=== PATIENT | female | born 1955 | race Caucasian/White ===

== ENCOUNTER 2021-05-07 10:32 | Emergency (ER) | payer OTHER, MEDICAID, SELFPAY ==
[~2021-05-07] VITALS: Ht 160 cm; Wt 77.1 kg
[2021-05-07 10:32] VITALS: BP_SYST 143
--- NOTE | 2021-05-07 10:32 | NUR ---
BROUGHT IN BY [facility] AND [facility]ACED IN BED #2, TRIAGED, REPORT GIVEN TO GABRIELA
--- NOTE | 2021-05-07 10:35 | NUR ---
ER at bedside examining patient.
--- NOTE | 2021-05-07 10:40 | NUR ---
pt. joanie NUNEZ for medical clearance to go to [facility]
[2021-05-07 11:11] LABS: BASOPHILS # (AUTO) 0.1 K/uL (0.0-0.2); BASOPHILS % (AUTO) 0.6 % (0.0-2.0); EOSINOPHILS # (AUTO) 0.6 K/uL (0.0-0.4); HEMATOCRIT 35.1 % (36-48); HEMOGLOBIN 11.6 g/dL (12.0-16.0); LYMPHOCYTES # (AUTO) 1.4 K/uL (1.0-5.5); LYMPHOCYTES % (AUTO) 17.2 % (20.5-51.5); MEAN CORPUSCULAR HEMOGLOBIN 28 pg (27-31); MEAN CORPUSCULAR HGB CONC 33 % (32-36); MEAN CORPUSCULAR VOLUME 85 fL (79.0-98.0); MONOCYTES # (AUTO) 0.8 K/uL (0.0-1.0); MONOCYTES % (AUTO) 10.3 % (1.7-9.3); NEUTROPHILS # (AUTO) 5.1 K/uL (1.8-7.7); NEUTROPHILS % (AUTO) 63.9 % (40.0-70.0); PLATELET COUNT (AUTO) 256 K/uL (130-430); RED BLOOD CELL COUNT(AUTO) 4.12 MIL/uL (4.2-6.2); RED CELL DISTRIBUTION WIDTH 15.3 % (9.0-15.0); WHITE BLOOD COUNT (AUTO) 8.1 K/uL (4.8-10.8)
--- NOTE | 2021-05-07 11:20 | NUR ---
66 years old female sent to er for medical clearance, denies pain vital stable.
[2021-05-07 11:48] LABS: ANION GAP 8 (5-15); CHLORIDE 104 mmol/L (98-107); CREATININE 0.59 mg/dL (0.55-1.30); GLUCOSE 104 mg/dL (70-99); POTASSIUM 4.3 mmol/L (3.5-5.1); SODIUM SERUM 137 mmol/L (136-145); UREA NITROGEN, BLOOD 14 mg/dL (8-21)
[2021-05-07 11:55] LABS: GFR AFRICAN AMERICAN 132 mL/min (>90)
[2021-05-07 12:03] LABS: ALANINE AMINOTRANSFERASE 32 U/L (12-78); ALBUMIN 3.4 g/dL (3.4-4.8); ASPARTATE AMINOTRANSFERASE 40 U/L (10-37); TOTAL BILIRUBIN 0.8 mg/dL (0.0-1.0)
[2021-05-07 12:04] LABS: ACETAMINOPHEN < 1 ug/mL (1-30); ALCOHOL, BLOOD < 3 mg/dL (<10)
[2021-05-07 12:17] LABS: CHOLESTEROL 153 mg/dL (<200); HDL CHOLESTEROL 60 mg/dL (>55); LDL CHOLESTEROL 78 mg/dL (<100); TRIGLYCERIDES 94 mg/dL (30-150)
--- NOTE | 2021-05-07 13:31 | NUR ---
MICHAEL IRWIN CALLED BACK TO NOTIFY THEIR CREW WILL BE HERE IN AN HOUR. ETA [id number]
--- NOTE | 2021-05-07 13:43 | NUR ---
Patient incontinent of urine. Patient cleaned, new gown applied and sheets changed.Patient given call light to notify of need to go to bathroom.
[2021-05-07 14:40] VITALS: BP_SYST 136
--- NOTE | 2021-05-07 15:19 | NUR ---
Patient to be transferred to [facility]. Is being transferred due to higher level of care/psych treatment. Receiving facility has accepting physician and available space. ER physician has signed transfer form. Patient or responsible green party has agreed to transfer and signed form. Patient belongings inventoried and will be sent with patient. Copy of nursing notes, lab reports, EKG, Physicians Orders and X-rays to be sent with patient. Report called to at receiving facility. Receiving physician is . ambulance service has been called for transfer. ETA is .
== END 2021-05-07 15:19 ==
LOC: SED 10:32
DX: Z13.30 Encounter for screening examination for mental health and behavioral disorders, unspecified (principal); Z20.822 Contact with and (suspected) exposure to COVID-19; E11.9 Type 2 diabetes mellitus without complications; E78.00 Pure hypercholesterolemia, unspecified; Z91.041 Radiographic dye allergy status; Z91.048 Other nonmedicinal substance allergy status
CPT/HCPCS: 36415; 80053; 80061; 83036; 85025; 87426; 99285; G0480; G0481; G0482